=== PATIENT | female | born 1960 | race Caucasian/White ===

== ENCOUNTER 2022-11-10 13:11 | Emergency (ER) | payer OTHER ==
[~2022-11-10] VITALS: Wt 72.6 kg
[2022-11-10 13:44] LABS: BASO % 0.3 % (0.0-1.0); EOS # 0.1 10*3/uL (0.0-0.4); EOS % 0.8 % (1.0-4.0); HEMATOCRIT 38.1 % (37.0-47.0); LYMPH # 1.9 10*3/uL (1.3-4.4); LYMPH % 23.5 % (27.0-41.0); MEAN CELL VOLUME 92.9 fl (81.0-99.0); MEAN CORPUSCULAR HGB CONC 31.2 g/dl (33.0-37.0); MEAN PLATELET VOLUME 10.9 fl (9.6-12.3); MONO # 0.5 10*3/uL (0.1-1.0); MONO % 6.6 % (3.0-9.0); NEUT # 5.4 10*3/uL (2.3-7.9); NEUT % 68.5 % (47.0-73.0); PLATELET COUNT AUTOMATED 219 10*3/uL (130-400); RED CELL DISTRI WIDTH 13.9 % (0-14.5); WHITE BLOOD COUNT 7.9 10*3/uL (4.8-10.8)
[2022-11-10 13:55] LABS: ACT PARTIAL THROMBO TIME 25.4 SECONDS (20.0-32.1); INTERNATIONAL NORM RATIO 0.9 (2.0-3.5)
[2022-11-10 14:01] LABS: ALKALINE PHOSPHATASE 79 U/L (46-116); BUN 25 mg/dl (9-23); CHLORIDE 106 mmol/L (98-107); LIPASE 41 U/L (12-53); POTASSIUM 3.7 mmol/L (3.4-5.1); SGPT/ALT 16 U/L (10-49); TOTAL PROTEIN 6.9 gm/dL (6.0-8.0)
[2022-11-10] MEDS ORDERED: HYDROCODONE-AC1 EAC2 PO (14:15)
[2022-11-10] MEDS ORDERED: DULOXETINE HCL60 MG PO (14:15)
[2022-11-10] MEDS ORDERED: NURTEC ODT75 MG PO (14:16)
[2022-11-10] MEDS ORDERED: MIDODRINE HCL10 MG PO (14:16)
[2022-11-10] MEDS ORDERED: TOPIRAMATE100 M2 PO (14:16)
[2022-11-10] MEDS ORDERED: PANTOPRAZOLE SO40 MG PO (14:16)
[2022-11-10] MEDS ORDERED: ROPINIROLE HYDRO1 MG PO (14:17)
[2022-11-10] MEDS ORDERED: PROMETHAZINE12.5 M5 PO (14:17)
[2022-11-10] MEDS ORDERED: Synthroid,Levo88 MCG PO (14:17)
[2022-11-10] MEDS ORDERED: CYCLOBENZAPRINE10 MG PO (15:11)
== END 2022-11-10 15:20 | disposition home or self-care (01) ==
LOC: ED 13:11
PROVIDERS: Emergency Medicine
DX: T14.8XXA Other injury of unspecified body region, initial encounter (principal); R51.9 Headache, unspecified; M54.2 Cervicalgia; R10.9 Unspecified abdominal pain; M25.561 Pain in right knee; Z88.1 Allergy status to other antibiotic agents; Z88.8 Allergy status to other drugs, medicaments and biological substances; Z79.899 Other long term (current) drug therapy; V43.52XA Car driver injured in collision with other type car in traffic accident, initial encounter; Y93.89 Activity, other specified; Y92.89 Other specified places as the place of occurrence of the external cause; Y99.8 Other external cause status